=== PATIENT | female | born 1995 | race American Indian/Alaskan Native ===

== ENCOUNTER 2020-12-18 04:42 | Emergency (ER) | payer MEDICAID, OTHER ==
[2020-12-18] MEDS ORDERED: Propofol 200 MG/20 ML SDV IV ONE (04:43)
--- NOTE | 2020-12-18 04:52 | EDM.PDOC ---
ED HPI GENERAL MEDICAL PROBLEM - General Chief Complaint: Upper Extremity Injury/Pain Stated Complaint: FELL AND HAS "BROKEN" ARM Time Seen by Provider: 12/18/20 04:50 Source of Information: Reports: Patient History Limitations: Reports: No Limitations - History of Present Illness INITIAL COMMENTS - FREE TEXT/NARRATIVE: fell onto left arm tonight Left Lower Arm Pain Score (Numeric/FACES): 10 - Related Data Allergies Allergy/AdvReac Type Severity Reaction Status Date / Time No Known Allergies Allergy Verified 12/18/20 04:51 Home Meds: Home Meds . 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 ED EXAM, GENERAL - Physical Exam Exam: See Below Exam Limited By: No Limitations General Appearance: Alert, WD/WN, Mild Distress, Other (crying) Ears: Hearing Grossly Normal Throat/Mouth: Normal Voice, No Airway Compromise Head: Atraumatic Neck: Non-Tender, Full Range of Motion Respiratory/Chest: No Respiratory Distress Cardiovascular: Regular Rate, Rhythm GI/Abdominal: Soft, Non-Tender (Female) Exam: Deferred Rectal (Female) Exam: Deferred Back Exam: Full Range of Motion Extremities: Other (left wrist swollen tender R/P, NV wnl.) Neurological: Alert, Oriented, Normal Cognition, Normal Gait, No Motor/Sensory Deficits Psychiatric: Tearful Skin Exam: Warm, Dry, Normal Color Lymphatic: No Adenopathy ED TRAUMA EXTREMITY PROCEDURES - Splinting Left Upper Extremity Splint Site: forearm Pre-Procedure NV Status: Normal Post-Procedure NV Status: Normal Splint Material: Fiberglass Splint Design: Other (gutter) Applied & Form Fitted By: Provider Provider Post-Splint Application NV Check: NV Status Normal, Good Position Complications: No Course - Vital Signs Last Recorded V/S: Last Vital Signs Temp 36.6 C 12/18/20 04:54 Pulse 135 H 01/24/21 04:54 Resp 20 12/18/20 04:54 BP 128/64 12/18/20 04:54 Pulse Ox 97 12/18/20 04:54 - Orders/Labs/Meds Orders: Active Orders 24 hr Category Date Time Status Forearm 2V Lt [CR] Urgent Exams 12/18/20 06:38 Taken Labs: Laboratory Tests 12/18/20 12/18/20 12/18/20 Range/Units 05:15 05:15 05:15 WBC 9.0 (5.0-10.0) 10^3/uL RBC 5.07 (4.2-5.4) 10^6/uL Hgb 14.3 (12.0-16.0) g/dL Hct 43.2 (37.0-47.0) % MCV 85.2 (80-100) fL MCH 28.2 (27.0-34.0) pg MCHC 33.1 (33.0-35.0) g/dL Plt Count 382 (150-450) 10^3/uL Neut % (Auto) 66.9 (42.2-75.2) % Lymph % (Auto) 26.6 (20.5-50.1) % [place] % (Auto) 5.8 (2-8) % Eos % (Auto) 0.1 L (1.0-3.0) % Baso % (Auto) 0.6 (0.0-1.0) % Sodium 144 (136-145) mmol/L Potassium 3.5 (3.5-5.1) mmol/L Chloride 107 (98-107) mmol/L Carbon Dioxide 23 (21-32) mmol/L Anion Gap 17.5 H (7-13) mEq/L BUN 4 L (7-18) mg/dL Creatinine 0.59 (0.55-1.02) mg/dL Est Cr Clr Drug Dosing 138.83 mL/min Estimated GFR (MDRD) > 60 BUN/Creatinine Ratio 6.8 (No establ ref range) Glucose 131 H (74-99) mg/dL Calcium 8.4 L (8.5-10.1) mg/dL Total Bilirubin 0.2 (0.2-1.0) mg/dL AST 25 (15-37) U/L ALT 44 (14-59) U/L Alkaline Phosphatase 107 (46-116) U/L Total Protein 8.5 H (6.4-8.2) g/dL Albumin 4.3 (3.4-5.0) g/dL Globulin 4.2 Albumin/Globulin Ratio 1.0 HCG, Qual Negative Ethyl Alcohol 229 (0) mg/dL Meds: Medications Discontinued Medications Generic Name Dose Route Start Last Admin Trade Name Marcelloq PRN Reason Stop Dose Admin Fentanyl 50 mcg 12/18/20 05:13 12/18/20 05:27 Sublimaze IVPUSH 12/18/20 05:14 50 mcg ONETIME ONE Administration Sodium Chloride 1,000 mls @ 999 mls/hr 12/18/20 05:13 12/18/20 06:20 Normal Saline IV 12/18/20 06:13 999 mls/hr .BOLUS ONE Administration Ondansetron HCl 4 mg 12/18/20 05:21 12/18/20 05:25 Zofran IVPUSH 12/18/20 05:22 4 mg ONETIME ONE Administration Departure - Departure Time of Disposition: 06:48 Disposition: Home, Self-Care 01 Condition: Good Clinical Impression: Forearm fractures, both bones, closed Qualifiers: Encounter type: initial encounter Laterality: left Qualified Code(s): S52.92XA - Unspecified fracture of left forearm, initial encounter for closed fracture; S52.202A - Unspecified fracture of shaft of left ulna, initial encounter for closed fracture - Discharge Information Instructions: Cast or Splint Care, Adult, [id number] Forms: ED Department Discharge Additional Instructions: 1) wear splint and sling until re-evaluated by clinic Saturday 2) see clinic Saturday for ORTHOPEDIC REFERRAL 3) recheck if there is any change or concern rx given; vicodin 5/325mg bod to tid prn x 12 Sepsis Event Note (ED) - Focused Exam Vital Signs: Vital Signs Temp Pulse Resp BP Pulse Ox 12/18/20 04:54 36.6 C 135 H 20 128/64 97 - My Orders Last 24 Hours: My Active Orders 12/18/20 06:38 Forearm 2V Lt [CR] Urgent - Assessment/Plan Last 24 Hours: My Active Orders 12/18/20 06:38 Forearm 2V Lt [CR] Urgent
[2020-12-18 04:58] VITALS: BP 128/64; PULSE 135
[2020-12-18] MEDS ORDERED: fentaNYL 100 MCG/2 ML SDV IVPUSH ONE (05:13)
--- NOTE | 2020-12-18 05:20 | CR ---
PROCEDURE INFORMATION: Exam: XR Left Wrist Exam date and time: 12/18/2020 5:05 AM Age: 25 years old Clinical indication: Other: Pain; Additional info: Fell onto it TECHNIQUE: Imaging protocol: XR Left wrist. Views: 1 or 2 views. COMPARISON: No relevant prior studies available. FINDINGS: Bones/joints: There are transverse fractures of the distal left radial and ulnar diaphyses. There is an approximate 25 degree posterior apex angular deformity of the radial fracture site an approximate 30 degree posterior apex angular deformity of the ulnar fracture site. Additionally, there is approximately 1 full bone width of dorsal displacement of the distal fracture fragment of the radius and approximately 1 full bone width of ventral displacement of the distal ulnar fracture fragment. Soft tissues: Normal. IMPRESSION: Acute distal diaphyseal fractures of the left radius and ulna as described above.
[2020-12-18] MEDS ORDERED: Ondansetron 4 MG/2 ML SDV IVPUSH ONE (05:21)
[2020-12-18] MEDS: Sodium Chloride 0.9% 1,000 ML IV ONE ×2 (05:24→06:20)
[2020-12-18 05:38] LABS: ANION GAP 17.5 mEq/L (7-13); CHLORIDE,CL 107 mmol/L (98-107); SODIUM,NA 144 mmol/L (136-145)
--- NOTE | 2020-12-18 06:53 | CR ---
PROCEDURE INFORMATION: Exam: XR Left Forearm Exam date and time: 12/18/2020 6:38 AM Age: 25 years old Clinical indication: Other: Post reduction TECHNIQUE: Imaging protocol: XR Left forearm. Views: 2 views. COMPARISON: No relevant prior studies available. FINDINGS: Bones/joints: Status post closed reduction of transverse fractures of the distal left radial and ulnar diaphyses with satisfactory alignment achieved and seen in lateral view only. Soft tissues: Normal. IMPRESSION: Status post closed reduction of fractures of the distal left radial and ulnar diaphyses with satisfactory alignment achieved and seen in lateral view only.
== END 2020-12-18 07:17 | disposition home or self-care (01) ==
LOC: DL.ED 04:42
DX: S52.502A Unspecified fracture of the lower end of left radius, initial encounter for closed fracture (principal); S52.202A Unspecified fracture of shaft of left ulna, initial encounter for closed fracture; W18.30XA Fall on same level, unspecified, initial encounter; Y92.89 Other specified places as the place of occurrence of the external cause
CPT/HCPCS: 01820; 25605; 36415; 73090; 73100; 80053; 80307; 84703; 85025; 96374; 96375; 99283; J2405; J2704; J3010; J7030; 29125

== ENCOUNTER 2021-01-28 21:17 | Emergency (ER) | payer MEDICAID ==
[2021-01-28] MEDS ORDERED: Ondansetron 4 MG Tab.DIS PO ONE ×2 (21:18→21:29)
[2021-01-28 21:28] VITALS: BP 140/84; PULSE 96
[2021-01-28] MEDS ORDERED: Sodium Chloride 0.9% 1,000 ML IV ONE (21:57)
[2021-01-28] MEDS ORDERED: Metoclopramide 10 MG/2 ML SDV IVPUSH ONE (21:57)
[2021-01-28] MEDS ORDERED: Famotidine 20 MG/2 ML SDV IVPUSH ONE (21:57)
[2021-01-28 22:10] LABS: ANION GAP 19.2 mEq/L (7-13); CHLORIDE,CL 104 mmol/L (98-107); SODIUM,NA 144 mmol/L (136-145)
[2021-01-28] MEDS ORDERED: Promethazine 25 MG/ML SDV IM ONE (22:27)
--- NOTE | 2021-01-28 22:34 | EDM.PDOC ---
ED HPI GENERAL MEDICAL PROBLEM - General Chief Complaint: Gastrointestinal Problem Stated Complaint: FOOD OR ALCOHOL POISING PER PT Time Seen by Provider: 01/28/21 21:25 Source of Information: Reports: Patient, RN History Limitations: Reports: No Limitations - History of Present Illness INITIAL COMMENTS - FREE TEXT/NARRATIVE: ED with c/o nausea and vomiting today. Admits drinking some last night, Only a couple mixed drinks. [employer] and rice for supper last night Chills fever today, unsure if food poisoning. Mid epigastric pain earlier gone now. Estimates vomited 20 times at least. - Related Data Allergies Allergy/AdvReac Type Severity Reaction Status Date / Time No Known Allergies Allergy Verified 01/28/21 21:28 Home Meds: Home Meds . 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 ED EXAM, GI/ABD - Physical Exam Exam: See Below Exam Limited By: No Limitations General Appearance: Alert, Mild Distress, Obese Eyes: Bilateral: EOMI Ears: Normal External Exam Throat/Mouth: Normal Inspection Head: Atraumatic, Normocephalic Neck: Normal Inspection Respiratory/Chest: No Respiratory Distress, Lungs Clear, Normal Breath Sounds Cardiovascular: Normal Peripheral Pulses, Regular Rate, Rhythm GI/Abdominal Exam: Normal Bowel Sounds, Soft, Non-Tender Back Exam: Normal Inspection Extremities: Normal Inspection, Normal Range of Motion, Non-Tender Neurological: Alert, Oriented, Normal Cognition, Normal Gait Psychiatric: Normal Affect Skin Exam: Warm, Dry, Intact, Normal Color Course - Vital Signs Last Recorded V/S: Last Vital Signs Temp 96.8 F L 01/28/21 21:20 Pulse 96 01/28/21 21:20 Resp 18 01/28/21 21:20 BP 140/84 01/28/21 21:20 Pulse Ox 98 01/28/21 21:20 - Orders/Labs/Meds Labs: Laboratory Tests 01/28/21 01/28/21 01/28/21 Range/Units 21:45 21:45 21:45 WBC 15.3 H (5.0-10.0) 10^3/uL RBC 5.14 (4.2-5.4) 10^6/uL Hgb 14.6 (12.0-16.0) g/dL Hct 44.3 (37.0-47.0) % MCV 86.2 (80-100) fL MCH 28.4 (27.0-34.0) pg MCHC 33.0 (33.0-35.0) g/dL Plt Count 408 (150-450) 10^3/uL Neut % (Auto) 84.0 H (42.2-75.2) % Lymph % (Auto) 11.3 L (20.5-50.1) % [place] % (Auto) 4.2 (2-8) % Eos % (Auto) 0.1 L (1.0-3.0) % Baso % (Auto) 0.4 (0.0-1.0) % Sodium 144 (136-145) mmol/L Potassium 4.2 (3.5-5.1) mmol/L Chloride 104 (98-107) mmol/L Carbon Dioxide 25 (21-32) mmol/L Anion Gap 19.2 H (7-13) mEq/L BUN 6 L (7-18) mg/dL Creatinine 0.71 (0.55-1.02) mg/dL Est Cr Clr Drug Dosing 110.89 mL/min Estimated GFR (MDRD) > 60 BUN/Creatinine Ratio 8.5 (No establ ref range) Glucose 129 H (74-99) mg/dL Calcium 9.4 (8.5-10.1) mg/dL Total Bilirubin 0.5 (0.2-1.0) mg/dL AST 25 (15-37) U/L ALT 43 (14-59) U/L Alkaline Phosphatase 124 H (46-116) U/L Total Protein 9.0 H (6.4-8.2) g/dL Albumin 4.4 (3.4-5.0) g/dL Globulin 4.6 Albumin/Globulin Ratio 1.0 Amylase 75 (25-115) U/L Meds: Medications Discontinued Medications Generic Name Dose Route Start Last Admin Trade Name Paula CORDERO Reason Stop Dose Admin Famotidine 20 mg 01/28/21 21:57 01/28/21 22:11 Pepcid IVPUSH 01/28/21 21:58 20 mg ONETIME ONE Administration Sodium Chloride 1,000 mls @ 999 mls/hr 01/28/21 21:57 01/28/21 22:10 Normal Saline IV 01/28/21 22:57 999 mls/hr .BOLUS ONE Administration Metoclopramide HCl 10 mg 01/28/21 21:57 01/28/21 22:11 Reglan IVPUSH 01/28/21 21:58 10 mg ONETIME ONE Administration Ondansetron HCl 4 mg 01/28/21 21:29 01/28/21 21:34 Zofran Odt PO 01/28/21 21:30 4 mg ONETIME ONE Administration Ondansetron HCl Confirm 01/28/21 22:40 01/28/21 22:46 Zofran Odt Administered 01/28/21 22:41 Not Given Dose 12 mg .ROUTE .STK-MED ONE Promethazine HCl 25 mg 01/28/21 22:27 01/28/21 22:32 Phenergan IM 01/28/21 22:28 25 mg ONETIME ONE Administration Departure - Departure Time of Disposition: 22:55 Disposition: Home, Self-Care 01 Condition: Good Clinical Impression: Nausea & vomiting Qualifiers: Vomiting type: bilious vomiting Qualified Code(s): R11.14 - Bilious vomiting - Discharge Information *PRESCRIPTION DRUG MONITORING PROGRAM REVIEWED*: No *COPY OF PRESCRIPTION DRUG MONITORING REPORT IN PATIENT ALEXANDER: No Instructions: Nausea and Vomiting, Adult, [id number] Forms: ED Department Discharge Additional Instructions: small sips liquid only if no vomiting , advance as tolerated light bland diet advance as tolerated avoid caffeine, spicy foods, alcohol clinic follow up as needed Sepsis Event Note (ED) - Evaluation Sepsis Screening Result: No Definite Risk - Focused Exam Vital Signs: Vital Signs Temp Pulse Resp BP Pulse Ox 01/28/21 21:20 96.8 F L 96 18 140/84 98
[2021-01-28] MEDS ORDERED: Ondansetron 4 MG Tab.DIS ONE (22:40)
== END 2021-01-28 22:55 | disposition home or self-care (01) ==
LOC: DL.ED 21:17
DX: R11.14 Bilious vomiting (principal)
CPT/HCPCS: 36415; 80053; 82150; 85025; 96372; 96374; 96375; 99283; 99284; A9270; J2550; J2765; J3490; J7030

== ENCOUNTER 2021-12-23 19:24 | Emergency (ER) | payer MEDICAID ==
[2021-12-23] MEDS ORDERED: Ondansetron 4 MG Tab.DIS PO ONE (19:25)
[2021-12-23] MEDS ORDERED: Sodium Chloride 0.9% 1,000 ML IV ONE (19:42)
[2021-12-23] MEDS ORDERED: Pantoprazole 80 MG in Sodium Chloride 0.9% 100 ML IV ONE (19:42)
[2021-12-23] MEDS ORDERED: Ondansetron 4 MG/2 ML SDV IVPUSH ONE (19:42)
[2021-12-23 20:14] LABS: ANION GAP 18.5 mEq/L (7-13); CHLORIDE,CL 106 mmol/L (98-107); SODIUM,NA 143 mmol/L (136-145)
[2021-12-23 20:26] VITALS: BP 125/87; PULSE 83
[2021-12-23] MEDS ORDERED: Ondansetron 4 MG Tab.DIS ONE (21:03)
[2021-12-23 21:04] LABS: BENZODIAZEPINE,URINE NEGATIVE (NEGATIVE); MDMA (ECSTASY), URINE NEGATIVE (NEGATIVE); METHADONE,URINE NEGATIVE (NEGATIVE); METHAMPHETAMINES,URINE POSITIVE (NEGATIVE); OPIATES,URINE NEGATIVE (NEGATIVE)
[2021-12-23 21:05] LABS: AMPHETAMINES,URINE NEGATIVE (NEGATIVE); BARBITURATES,URINE NEGATIVE (NEGATIVE); OXYCODONE,URINE NEGATIVE (NEGATIVE); PHENCYCLIDINE,URINE NEGATIVE (NEGATIVE); TCA,URINE NEGATIVE (NEGATIVE)
== END 2021-12-23 21:17 | disposition home or self-care (01) ==
LOC: DL.ED 19:24
DX: K29.20 Alcoholic gastritis without bleeding (principal)
CPT/HCPCS: 36415; 80053; 80305; 80307; 82150; 83690; 84703; 85025; 96365; 96375; 99284; A9270; C9113; J2405; J7030

== ENCOUNTER 2022-10-22 10:30 | Inpatient (IN) | payer MEDICAID, OTHER ==
[2022-10-22] MEDS ORDERED: Misoprostol 400 MCG (4 X 100 MCG TAB) RECTAL PRN (12:53)
[2022-10-22] MEDS ORDERED: Lidocaine 1% 30 ML SDV INJECT PRN (12:53)
[2022-10-22] MEDS ORDERED: Tranexamic Acid 1,000 MG in Sodium Chloride 0.9% 100 ML IV PRN (12:53)
[2022-10-22] MEDS ORDERED: Methylergonovine 0.2 MG/1 ML Amp IM PRN (12:53)
[2022-10-22] MEDS ORDERED: Carboprost Tromethamine 250 MCG/1 ML Amp IM PRN (12:53)
[2022-10-22] MEDS ORDERED: Ondansetron 4 MG/2 ML SDV IVPUSH PRN (12:53)
[2022-10-22] MEDS ORDERED: Sodium Chloride 0.9% 10 ML Syringe FLUSH PRN (12:53)
[2022-10-22] MEDS ORDERED: Lactated Ringers 1,000 ML IV ONE (12:53)
[2022-10-22] MEDS ORDERED: Acetaminophen 325 MG Tab PO PRN (12:53)
[2022-10-22] MEDS ORDERED: Oxytocin/Normal Saline 30 UNIT/500 ML BAG IV SCH (13:00)
[2022-10-22] MEDS: Lactated Ringers 1,000 ML IV SCH ×2 (13:50→20:41)
[2022-10-22] MEDS: Oxytocin/Normal Saline 30 UNIT/500 ML BAG IV SCH (13:50)
[2022-10-22] MEDS ORDERED: Nalbuphine 20 MG/1 ML Amp IM ONE (17:40)
[2022-10-22] MEDS ORDERED: fentaNYL 100 MCG/2 ML SDV ITHECAL ONE (19:53)
[2022-10-22] MEDS: Sodium Chloride 0.9% 10 ML Syringe FLUSH SCH (22:33)
[2022-10-23] MEDS ORDERED: Simethicone 80 MG Tab.Chew PO PRN (02:06)
[2022-10-23] MEDS ORDERED: Zolpidem 5 MG Tab PO PRN (02:06)
[2022-10-23] MEDS ORDERED: Oxytocin 10 Units/1 ML SDV IM PRN (02:06)
[2022-10-23] MEDS ORDERED: Benzocaine/Menthol 20%-0.5% Spray 78 GM Cannister TOP PRN (02:06)
[2022-10-23] MEDS ORDERED: Ketorolac 30 MG/ML SDV IVPUSH ONE (02:18)
[2022-10-23] MEDS: ceFAZolin 2 GM in Premix Bag 1 BAG IV SCH ×4 (02:32→20:16)
[2022-10-23] MEDS: Oxytocin/Normal Saline 30 UNIT/500 ML BAG IV SCH (02:37)
[2022-10-23] MEDS: Lactated Ringers 1,000 ML IV SCH (02:39)
[2022-10-23] MEDS: Acetaminophen 325 MG Tab PO PRN ×2 (08:00→20:17)
[2022-10-23] MEDS: Ibuprofen 800 MG Tab PO PRN ×2 (10:40→22:29)
[2022-10-23] MEDS: Prenatal Multivitamin with Calcium/Folic Acid/Iron Tab PO SCH (10:40)
[2022-10-23] MEDS: Ferrous Sulfate 325 MG Tab PO SCH (10:40)
[2022-10-23] MEDS: Sodium Chloride 0.9% 10 ML Syringe FLUSH SCH (13:35)
[2022-10-23] MEDS: Docusate Sodium 100 MG Cap PO PRN (20:20)
[2022-10-24] MEDS: Sodium Chloride 0.9% 10 ML Syringe FLUSH SCH ×3 (02:24→20:56)
[2022-10-24] MEDS: ceFAZolin 2 GM in Premix Bag 1 BAG IV SCH (04:00)
[2022-10-24] MEDS: Docusate Sodium 100 MG Cap PO PRN ×2 (08:07→21:36)
[2022-10-24] MEDS: Ibuprofen 800 MG Tab PO PRN ×2 (08:08→18:19)
[2022-10-24] MEDS: Prenatal Multivitamin with Calcium/Folic Acid/Iron Tab PO SCH (08:08)
[2022-10-24] MEDS: Ferrous Sulfate 325 MG Tab PO SCH (08:08)
[2022-10-24] MEDS: Acetaminophen 325 MG Tab PO PRN (21:35)
[2022-10-25] MEDS: Ibuprofen 800 MG Tab PO PRN (04:00)
[2022-10-25] MEDS: Prenatal Multivitamin with Calcium/Folic Acid/Iron Tab PO SCH (08:37)
[2022-10-25] MEDS: Ferrous Sulfate 325 MG Tab PO SCH (08:37)
[2022-10-25] MEDS: Acetaminophen 325 MG Tab PO PRN (08:39)
[2022-10-25 11:00] VITALS: BP 134/86; PULSE 75
== END 2022-10-25 10:30 | disposition home or self-care (01) | DRG 796 ==
LOC: DL.OBCHECK 10:30 → DL.OB 12:53 → OBSVTOIN 10-23 01:27
PROVIDERS: ADMIT Family Medicine; ATTEND Family Medicine
PROC: 10E0XZZ Delivery of Products of Conception, External Approach (ICD-10-PCS; principal; 2022-10-23)
PROC: 10D17ZZ Extraction of Products of Conception, Retained, Via Natural or Artificial Opening (ICD-10-PCS; 2022-10-23)
PROC: 0KQM0ZZ Repair Perineum Muscle, Open Approach (ICD-10-PCS; 2022-10-23)
PROC: 10907ZC Drainage of Amniotic Fluid, Therapeutic from Products of Conception, Via Natural or Artificial Opening (ICD-10-PCS; 2022-10-23)
PROC: 4A1HXCZ Monitoring of Products of Conception, Cardiac Rate, External Approach (ICD-10-PCS; 2022-10-23)
PROC: 3E0R3BZ Introduction of Anesthetic Agent into Spinal Canal, Percutaneous Approach (ICD-10-PCS; 2022-10-23)
PROC: 00HU33Z Insertion of Infusion Device into Spinal Canal, Percutaneous Approach (ICD-10-PCS; 2022-10-23)
DX: O48.0 Post-term pregnancy (principal); U07.1 COVID-19; Z37.0 Single live birth; O98.52 Other viral diseases complicating childbirth; O72.1 Other immediate postpartum hemorrhage; D62 Acute posthemorrhagic anemia; Z3A.40 40 weeks gestation of pregnancy; O14.04 Mild to moderate pre-eclampsia, complicating childbirth; O99.814 Abnormal glucose complicating childbirth; O70.1 Second degree perineal laceration during delivery; O69.81X0 Labor and delivery complicated by cord around neck, without compression, not applicable or unspecified; Z87.891 Personal history of nicotine dependence; O99.02 Anemia complicating childbirth
CPT/HCPCS: 36415; 51701; 59409; 62320; 85027; A9270-GY; J0690; J1885; J2300; J2405; J2590; J3010; J3490; J7120; U0002